=== PATIENT | male | born 1995 | race Caucasian/White ===

== ENCOUNTER 2019-03-09 08:40 | Outpatient (CLI) | payer BC, OTHER, SELFPAY ==
--- NOTE | ~2019-03-09 | MR_ITS ---
EXAMINATION: MR knee LT wo con DATE: 03/09/2019 10:04 INDICATION: Rupture of anterior cruciate ligament of left knee. TECHNIQUE: Magnetic resonance imaging (MRI) of the left knee was performed without intravenous contra st. Sequences included axial PD-weighted FS FSE, coronal PD-weighted FSE and PD-weighted FS FSE, sagi ttal PD-weighted FSE, and sagittal T2-weighted FS FSE. COMPARISON: Left knee radiographs 02/22/2019 FINDINGS: Medial compartment: There is an undersurface horizontal tear involving body and posterior horn of medial meniscus. Medial compartment cartilage is normal. There is subchondral edema of anterior and posterior aspects of tib ial condyle, consistent with contusions. Lateral compartment: Lateral meniscus is normal. Lateral compartment cartilage is normal. There is subchondral edema of po sterior aspect of tibial condyle and the notch of femoral condyle, consistent with contusions. Patellofemoral compartment: Patellar cartilage is normal. Trochlear cartilage is normal. No subchondral edema. Ligaments and tendons: There is a complete tear of anterior cruciate ligament. There is mild thickening of posterior cruciat e ligament, consistent with sprain. There is a low-grade partial tear of fibular collateral ligament. There is edema around medial collateral ligament, consistent with sprain. There is mild patellar ten dinopathy. Fluid: There is a large knee joint effusion. There is trace fluid in a Hinds's cyst. There is mild prepatell ar and superficial infrapatellar bursitis. IMPRESSION: 1. Complete tear of anterior cruciate ligament. 2. Tear of medial meniscus. 3. Large knee joint effusion. 4. Sprains of medial collateral ligament, fibular collateral ligament, and posterior cruciate ligamen t. Reviewed, dictated and finalized at location A. S [employer] IMPRESSION: 1. Complete tear of anterior cruciate ligament. 2. Tear of medial meniscus. 3. Large knee joint effusion. 4. Sprains of medial collateral ligament, fibular collateral ligament, and post erior cruciate ligament.
== END 2019-03-09 08:41 | disposition home or self-care (01) ==
PROVIDERS: Visit Provider Orthopaedic Surgery
DX: S83.512A Sprain of anterior cruciate ligament of left knee, initial encounter (principal); S83.242A Other tear of medial meniscus, current injury, left knee, initial encounter
CPT/HCPCS: 73721